=== PATIENT | male | born 1970 | race Caucasian/White ===

== ENCOUNTER 2017-10-02 10:19 | Emergency (ER) | payer OTHER ==
--- OUTSIDE RECORDS SUMMARY | 2017-10-02 12:37 | XMS REPORT ---
:1970 External Reference #:[id number] Author Organization [place] [employer] Document Preparation Address [address] [address] Phone [phone] Care Team Providers Name Role Phone Agustin Espinoza MD Care Team Information Hair Assistant Unavailable Nadege Maloney MD Primary Care Physician Unavailable Payers Type Date Identification Numbers Payment Provider Subscriber Commercial Policy Number: [id number] Cesar Antony Group Name: [id number] [address] PayID: [id number] [place] [address] Problems Date Description Provider Status Onset: 05/08/2015 Genital herpes simplex Jose Quigley NP Active Note: Rare outbreaks Onset: 06/11/2016 Localized, primary osteoarthritis of the Laure Anel [place] Active pelvic region and thigh Family History Date Family Member(s) Problem(s) Comments General Heart Disease Father No Current Problems 76 Mother Breast Cancer Mother Osteoporosis 76 Social History Type Date Description Comments Marital Status Lives With spouse Occupation survey data technician ETOH Use Currently consumes alcohol Smoking Patient has never smoked Exercise Type/Frequency Exercises regularly Allergies, Adverse Reactions, Alerts Date Description Reaction Status Severity Comments 05/07/2015 NKDA active Medications Medication Date Status Form Strength Qnty SIG Indications Ordering Provider Acyclovir Active Tablets 400mg 30tabs one tablet B00.89 Josepaige Quigley 017 three [employer] times a day for 5 days as needed. Tramadol HCL Active Tablets 50mg 30tabs 1-2 N50.819 Jose Dann, 017 tablets [employer] every 8 hours as needed for pain. No Active Hx Unknown Medications 016 - 017 Acyclovir Hx Tablets 400mg 180tabs take 1 Jose Dann, 015 - tablet by [employer] mouth 015 twice a day Acyclovir Hx Tablets 400mg 30tabs one tablet B00.89 Jose Dann, 015 - three [employer] times a 016 day for 5 days as needed. Immunizations CPT Code Status Date Vaccine Lot # [id number] Given 05/23/2015 Influenza Virus Vaccine, Quadrivalent, Split, Preservative Free Vital Signs Date Vital Result Comment 09/20/2017 Weight 176.00 lb Heart Rate 70 /min BP Systolic 118 mmHg BP Diastolic 80 mmHg Body Temperature 97.0 F O2 % BldC Oximetry 98 % 01/20/2017 Weight 175.50 lb Heart Rate 67 /min BP Systolic 110 mmHg BP Diastolic 68 mmHg Body Temperature 96.9 F O2 % BldC Oximetry 98 % 06/11/2016 Height 61.5 inches 5'1.50" Weight 170.00 lb Heart Rate 63 /min BP Systolic 122 mmHg BP Diastolic 73 mmHg BMI (Body Mass Index) 31.6 kg/m2 04/19/2016 Weight 167.00 lb Heart Rate 72 /min BP Systolic Sitting 118 mmHg BP Diastolic Sitting 70 mmHg Respiratory Rate 16 /min Body Temperature 97.8 F O2 % BldC Oximetry 98 % 05/07/2015 Weight 170.00 lb Heart Rate 67 /min BP Systolic Sitting 126 mmHg BP Diastolic Sitting 74 mmHg Body Temperature 97.2 F Results Test Date Test Result H/L Range Note Lipid Profile (Trig/Chol/HDL) 04/19/2016 Triglycerides 36 mg/dL 1 Cholesterol 161 mg/dL 2 HDL Cholesterol 55.1 mg/dL 3 LDL Cholesterol 99 mg/dL 4 Comp Metabolic Panel 04/19/2016 Sodium 137 mmol/L 133-145 Potassium 4.6 mmol/L 3.5-5.0 Chloride 102 mmol/L 101-111 Co2 Carbon Dioxide 30 mmol/L 22-32 Anion Gap 5 mmol/L 2-11 Glucose 91 mg/dL 70-100 Blood Urea Nitrogen 16 mg/dL 6-24 Creatinine 0.96 mg/dL 0.67-1.17 BUN/Creatinine Ratio 16.7 8-20 Calcium 9.6 mg/dL 8.6-10.3 Total Protein 6.9 g/dL 6.4-8.9 Albumin 4.5 g/dL 3.2-5.2 Globulin 2.4 g/dL 2-4 Albumin/Globulin Ratio 1.9 1-3 Total Bilirubin 0.60 mg/dL 0.2-1.0 Alkaline Phosphatase 57 U/L 34-104 Alt 16 U/L 7-52 Ast 21 U/L 13-39 Egfr Non- 84.0 >60 Egfr 108.0 >60 5 1 Desirable <150 Borderline high 150-199 High 200-499 Very High >500 2 Desirable <200 Borderline high 200-239 High >239 3 Low <40 Desirable: 40-60 High: >60 4 Desirable: <100 mg/dL Near Optimal: 100-129 mg/dL Borderline High: 130-159 mg/dL High: 160-189 mg/dL Very High: >189 mg/dL 5 Because ethnic data is not always readily available, this report includes an eGFR for both -Americans and non- Americans. The National Kidney Disease Education Program (NKDEP) does not endorse the use of the MDRD equation for patients that are not between the ages of 18 and 70, are , have extremes of body size, muscle mass, or nutritional status, or are non- or non-. According to the National Kidney Foundation, irrespective of diagnosis, the stage of the disease is based on the level of kidney function: Stage Description GFR(mL/min/1.73 m(2)) 1 Kidney damage with normal or decreased GFR 90 2 Kidney damage with mild decrease in GFR 60-89 3 Moderate decrease in GFR 30-59 4 Severe decrease in GFR 15-29 5 Kidney failure <15 (or dialysis) Procedures Date CPT Code Description Status 07/26/2005 53623 ECHO/Stress Completed 07/26/2005 71224 Stress Test Completed Encounters Type Date Location Provider CPT E/M Dx Office Visit 01/20/2017 [facility] [place] [address] N50.819 2:20p - [place] Office Visit 06/11/2016 [facility] [place] M.D. 65176 M25.551 10:00a [facility] [place] M16.11 Office Visit 04/19/2016 10:40a [facility] [place] [address] M25.551 Kat Z13.220 Z13.1 Office Visit 05/07/2015 1:00p [facility] [place] [address] 054.79 Kat 698.0 238.2 Plan of Care 09/20/2017 - Jose Quigley NPM25.551 Pain in right hipReferral:Hollis Hawthorne MD , Surgery,Orthopedic
[2017-10-02 12:44] VITALS: BP 134/79
--- NOTE | 2017-10-02 13:31 | UC ---
Respiratory Complaint HPI - HPI Summary HPI Summary: 47 yo male with the onset of runny nose/cough/fever and myalgias that started yesterday no CP or SOB - History of Current Complaint Chief Complaint: UCGeneralIllness Stated Complaint: HEADACHE BODYACHES Time Seen by Provider: 10/02/17 12:52 Hx Obtained From: Patient Onset/Duration: Gradual Onset Timing: Constant Severity Initially: Moderate Severity Currently: Mild Pain Intensity: 2 Pain Scale Used: 0-10 Numeric Character: Cough: Nonproductive Aggravating Factors: Nothing Alleviating Factors: Nothing Associated Signs And Symptoms: Positive: Fever, Chills, Nasal Congestion - Allergies/Home Medications Allergies/Adverse Reactions: Allergies Allergy/AdvReac Type Severity Reaction Status Date / Time No Known Allergies Allergy Verified 10/02/17 12:44 PMH/Surg Hx/FS Hx/Imm Hx Previously Healthy: Yes - Surgical History Surgical History: Yes Surgery Procedure, Year, and Place: tendon repair finger age 6, varoicele repair , tendon release right hand 2011 - Family History Known Family History: Positive: Other - no FHX of glaucoma Negative: Cardiac Disease, Hypertension, Diabetes - Social History Alcohol Use: Rare Substance Use Type: None Smoking Status (MU): Never Smoked Tobacco - Immunization History Most Recent Tetanus Shot: 2012 Review of Systems Constitutional: Fever, Chills, Fatigue Skin: Negative Eyes: Negative ENT: Nasal Discharge Respiratory: Cough Cardiovascular: Negative Gastrointestinal: Negative Genitourinary: Negative Motor: Negative Neurovascular: Negative Musculoskeletal: Myalgia Neurological: Headache Psychological: Negative Is Patient Immunocompromised?: No All Other Systems Reviewed And Are Negative: Yes Physical Exam Triage Information Reviewed: Yes Appearance: Well-Appearing, No Pain Distress, Well-Nourished Vital Signs: Initial Vital Signs Temp 99.6 F 10/02/17 12:40 Pulse 84 10/02/17 12:40 Resp 18 10/02/17 12:40 BP 134/79 10/02/17 12:40 Pulse Ox 98 10/02/17 12:40 Vital Signs Reviewed: Yes Eyes: Positive: Conjunctiva Clear ENT: Positive: Hearing grossly normal, Nasal drainage, Uvula midline. Negative : Pharyngeal erythema, Nasal congestion, Tonsillar swelling, Tonsillar exudate, Trismus, Muffled voice, Hoarse voice, Dental tenderness, Sinus tenderness Neck: Positive: Supple, Nontender, No Lymphadenopathy Respiratory: Positive: Lungs clear, Normal breath sounds, No respiratory distress Cardiovascular: Positive: RRR, No Murmur Musculoskeletal: Positive: ROM Intact, No Edema Neurological: Positive: Alert Psychological Exam: Normal Skin Exam: Normal UC Diagnostic Evaluation - Laboratory O2 Sat by Pulse Oximetry: 98 - normal/not hypoxic Respiratory Course/Dx - Course Course Of Treatment: rapid influenza (+) - Differential Dx/Diagnosis Provider Diagnoses: influenza Discharge - Discharge Plan Condition: Stable Disposition: HOME Prescriptions: Oseltamivir CAP* [Tamiflu CAP*] 75 mg PO BID #10 cap Patient Education Materials: Influenza (ED) Referrals: Nadege Maloney MD [Primary Care Provider] - If Needed Additional Instructions: your test was (+) for influenza B rest fluids tylenol or advil if needed
== END 2017-10-02 13:38 | disposition home or self-care (01) ==
LOC: UCEAST 10:19
DX: J11.1 Influenza due to unidentified influenza virus with other respiratory manifestations (principal)
CPT/HCPCS: 87502; 99212; G0463

== ENCOUNTER 2018-08-15 22:28 | Emergency (ER) | payer OTHER ==
[2018-08-15 23:47] LABS: ABS Basophils 0 10^3/ul (0-0.2); ABS Eosinophils 0.1 10^3/ul (0-0.6); ABS Lymphocytes 1.9 10^3/ul (1.0-4.8); ABS Monocytes 0.4 10^3/ul (0-0.8); ABS Neutrophils 2.8 10^3/ul (1.5-7.7); ABS Nucleated RBC 0 10^3/ul; Hematocrit 43 % (42-52); Hemoglobin 15.1 g/dl (14.0-18.0); Mean Corpuscular HGB Conc 35 g/dl (31-36); Mean Corpuscular Hemoglobin 31 pg (27-31); Mean Corpuscular Volume 87 fL (80-94); Mean Platelet Volume 7.1 fL (7.4-10.4); Nucleated Red Blood Cells % 0.1; Platelet Count 200 10^3/ul (150-450); Red Blood Count 4.95 10^6/ul (4.00-5.40); Red Cell Distribution Width 13 % (10.5-15); White Blood Count 5.3 10^3/ul (3.5-10.8)
--- NOTE | 2018-08-15 23:55 | ED ---
Lower Extremity - HPI Summary HPI Summary: 48 year old male presents with aches in his thighs for the past couple days. Pain is intermittent. This feels like he has the flu like aches in his legs. No numbness or tingling. No weakness. He states he has been lifting objects this weekend. No fever. No chest pain or shortness breath. No swelling. No pain in his calf. He is nonsmoker. Does not drink alcohol or caffeine. No family history of blood clots. No recent travel. He states took some Tylenol and tramadol helped pain. he is not currently experiencing any pain. This has never happened before. No headache or dizziness. No unsteady gait. No rash. States pain is equal in both legs. no back pain. no urinary symptoms. no loss of bowel or bladder or saddle anaesthesia. - History of Current Complaint Chief Complaint: EDGeneral Stated Complaint: PAIN IN BOTH LEGS Time Seen by Provider: 08/15/18 23:37 Pain Intensity: 2 - Allergies/Home Medications Allergies/Adverse Reactions: Allergies Allergy/AdvReac Type Severity Reaction Status Date / Time No Known Allergies Allergy Verified 10/02/17 12:44 PMH/Surg Hx/FS Hx/Imm Hx Endocrine/Hematology History: Denies: Hx Diabetes, Hx Thyroid Disease Cardiovascular History: Denies: Hx Hypertension Respiratory History: Denies: Hx Asthma, Hx Chronic Obstructive Pulmonary Disease (COPD) GI History: Denies: Hx Ulcer Musculoskeletal History: Denies: Hx Rheumatoid Arthritis, Hx Osteoporosis - Surgical History Surgery Procedure, Year, and Place: tendon repair finger age 6, varoicele repair , tendon release right hand 2011 Infectious Disease History: No Infectious Disease History: Denies: Hx Clostridium Difficile, Hx Hepatitis, Hx Human Immunodeficiency Virus (HIV), Hx Shingles, Hx Tuberculosis, History Other Infectious Disease, Traveled Outside the [place] in Last 30 Days - Family History Known Family History: Positive: Other - no FHX of glaucoma Negative: Cardiac Disease, Hypertension, Diabetes - Social History Alcohol Use: Rare Substance Use Type: Reports: None Smoking Status (MU): Never Smoked Tobacco Review of Systems Negative: Fever Negative: Chest Pain Negative: Shortness Of Breath Positive: Myalgia - thigh aches All Other Systems Reviewed And Are Negative: Yes Physical Exam Triage Information Reviewed: Yes Vital Signs On Initial Exam: Initial Vitals Temp Pulse Resp BP Pulse Ox 98.9 F 69 16 147/82 98 08/15/18 22:39 08/15/18 22:39 08/15/18 22:39 08/15/18 22:39 08/15/18 22:39 Vital Signs Reviewed: Yes Appearance: Positive: Well-Appearing Skin: Positive: Warm, Dry Head/Face: Positive: Normal Head/Face Inspection Eyes: Positive: Normal, Conjunctiva Clear ENT: Positive: Pharynx normal Respiratory/Lung Sounds: Positive: Clear to Auscultation, Breath Sounds Present Cardiovascular: Positive: Normal, RRR Musculoskeletal: Positive: Strength/ROM Intact - legs, Other - nontender legs, sensation grossly intact, good pulses Neurological: Positive: Sensory/Motor Intact, Reflexes Intact - patella, Normal Gait Psychiatric: Positive: Normal Diagnostics - Vital Signs Vital Signs Temp Pulse Resp BP Pulse Ox 08/15/18 22:39 98.9 F 69 16 147/82 98 - Laboratory Lab Results: Lab Results 08/15/18 Range/Units 23:41 WBC 5.3 (3.5-10.8) 10^3/ul RBC 4.95 (4.00-5.40) 10^6/ul Hgb 15.1 (14.0-18.0) g/dl Hct 43 (42-52) % MCV 87 (80-94) fL MCH 31 (27-31) pg MCHC 35 (31-36) g/dl RDW 13 (10.5-15) % Plt Count 200 (150-450) 10^3/ul MPV 7.1 L (7.4-10.4) fL Neut % (Auto) 53.8 % Lymph % (Auto) 35.0 % [place] % (Auto) 8.4 % Eos % (Auto) 2.0 % Baso % (Auto) 0.8 % Absolute Neuts (auto) 2.8 (1.5-7.7) 10^3/ul Absolute Lymphs (auto) 1.9 (1.0-4.8) 10^3/ul Absolute Monos (auto) 0.4 (0-0.8) 10^3/ul Absolute Eos (auto) 0.1 (0-0.6) 10^3/ul Absolute Basos (auto) 0 (0-0.2) 10^3/ul Absolute Nucleated RBC 0 10^3/ul Nucleated RBC % 0.1 Result Diagrams: 12/18/18 23:41 08/15/18 23:41 Lab Statement: Any lab studies that have been ordered have been reviewed, and results considered in the medical decision making process. Lower Extremity Course/Dx - Course Course Of Treatment: 48 year old male presents with aches in his thighs for the past couple days. Pain is intermittent. This feels like he has the flu like aches in his legs. No numbness or tingling. No weakness. He states he has been lifting objects this weekend. No fever. No chest pain or shortness breath. No swelling. No pain in his calf. He is nonsmoker. Does not drink alcohol or caffeine. No family history of blood clots. No recent travel. He states took some Tylenol and tramadol helped pain. he is not currently experiencing any pain. This has never happened before. No headache or dizziness. No unsteady gait. No rash. States pain is equal in both legs. On exam is normal gait. Neurovascularly intact in legs. Nontender thigh. No risk factors for DVT. Labs within normal limits. Do not have a cause for the pain. Will have follow up primary. Patient understands agrees with plan. - Diagnoses Differential Diagnosis/HQI/PQRI: Positive: DVT, Sciatica, Other - electrolyte abnormaility Provider Diagnoses: Bilateral leg pain Discharge - Sign-Out/Discharge Documenting (check all that apply): Patient Departure - Discharge Plan Condition: Good Disposition: HOME Patient Education Materials: Leg Pain (ED) Referrals: Nadege Maloney MD [Primary Care Provider] - Additional Instructions: drink plenty of fluids Follow up with primary Return to ED if develop any new or worsening symptoms - Billing Disposition and Condition Condition: GOOD Disposition: Home
[2018-08-16 00:05] LABS: Albumin 4.3 g/dL (3.2-5.2); Albumin/Globulin Ratio 1.9 (1-3); BUN/Creatinine Ratio 14.3 (8-20); Calcium 9.4 mg/dL (8.6-10.3); EGFR Non-African American 106.9 (>60); Globulin 2.3 g/dL (2-4); Phosphorus 4.6 mg/dL (2.5-5.0); Potassium 3.8 mmol/L (3.5-5.0); Total Bilirubin 0.4 mg/dL (0.2-1.0); Total Protein 6.6 g/dL (6.4-8.9)
[2018-08-16 00:18] VITALS: BP 139/80
== END 2018-08-16 00:18 | disposition home or self-care (01) ==
LOC: ED 22:28
DX: M79.652 Pain in left thigh (principal); M79.651 Pain in right thigh
CPT/HCPCS: 36415; 80053; 82550; 83735; 84100; 85025; 86618; 99282